=== PATIENT | male | born 1995 | race Caucasian/White ===

== ENCOUNTER 2017-04-13 20:48 | Emergency (ER) | payer SELFPAY ==
[~2017-04-13] VITALS: Ht 175.3 cm; Wt 68.0 kg
[2017-04-13] MEDS ORDERED: KETOROLAC 60 MG/2 ML VIAL IM STA (21:04)
[2017-04-13] MEDS ORDERED: RX-NAPROXEN (NAPROSYN) 250 MG TAB PPK#4 PO STA (21:04)
[2017-04-13] MEDS ORDERED: RX-TRAMADOL 50 MG (ULTRAM) TAB PPK#4 PO STA (21:04)
[2017-04-13] MEDS ORDERED: LIDO15SO2 MM (21:10)
[2017-04-13] MEDS ORDERED: TRAM-42 PO (21:10)
[2017-04-13] MEDS ORDERED: AMOX-358 PO (21:10)
[2017-04-13] MEDS ORDERED: NAPR500T4 PO (21:10)
--- NOTE | 2017-04-13 21:10 | ED EENT ---
History of Present Illness General Chief Complaint: Dental Problems/Pain Stated Complaint: TOOTH PAIN Nursing Triage Note: PT TO ED W/ C/O RT SIDE DENTAL PAIN ONSET TODAY. DENIES INJURY Source: patient History of Present Illness Time seen by provider: 21:00 Initial Comments PT C/O SEVERE PAIN AND SWELLING TO LEFT LOWER WISDOM TOOTH ALL DAY TODAY HAS NOT HAD PROBLEMS WITH THIS PARTICULAR TOOTH IN THE PAST, BUT HAS HAD PROBLEMS WITH HIS OTHER WISDOM TEETH NO FEVER NO SWELLING TO FACE NO RELIEF WITH [facility] STUDENT NO DENTIST Allergies and Home Medications Allergies Coded Allergies: No Known Drug Allergies (Unverified , 04/13/17) Home Medications Amoxicillin/Potassium Clav 1 Each Tablet, 1 EACH PO BID, #20 Prescribed by: NOAM PEREIRA on 04/13/172109 Lidocaine HCl 15 Ml Solution, 1-2 ML MM Q 1-2 HOURS, #50 Prescribed by: NOAM PEREIRA on 04/13/172109 Naproxen 500 Mg Tablet, 500 MG PO BID, #20 Prescribed by: NOAM PEREIRA on 04/13/172109 Tramadol HCl 50 Mg Tablet, 50 MG PO Q4H, #15 Prescribed by: NOAM PEREIRA on 04/13/172109 Review of Systems Constitutional: no symptoms reported Eyes: No Symptoms Reported Ears: No Symptoms Reported Nose: no symptoms reported Mouth: see HPI Throat: no symptoms reported Respiratory: no symptoms reported Cardiovascular: no symptoms reported Musculoskeletal: no symptoms reported Skin: no symptoms reported Neurological: No Symptoms Reported Past Uyzggie-Cyhiyu-Nvbvol Hx Patient Social History Alcohol Use: Denies Use Recreational Drug Use: No Smoking Status: Never a Smoker Recent Foreign Travel: No Contact w/Someone Who Travel: No Recent Infectious Disease Expo: No Recent Hopitalizations: No Surgeries HX Surgeries: No Respiratory Hx Respiratory Disorders: No Cardiovascular Hx Cardiac Disorders: No Neurological Hx Neurological Disorders: No Reproductive System Hx Reproductive Disorders: No Genitourinary Hx Genitourinary Disorders: No Gastrointestinal Hx Gastrointestinal Disorders: No Musculoskeletal Hx Musculoskeletal Disorders: No Endocrine Hx Endocrine Disorders: No HEENT HX ENT Disorders: No Cancer Hx Cancer: No Psychosocial Hx Psychiatric Problems: No Integumentary HX Skin/Integumentary Disorder: No Blood Transfusions Hx Blood Disorders: No Physical Exam Vital Signs Vital Sign - Last 12Hours 04/13/17 21:01 Temp 98.6 Pulse 85 Resp 20 B/P (MAP) 144/87 Pulse Ox 99 O2 Delivery Room Air General Appearance: WD/WN, other (ANXIOUS, HOLDING RIGHT JAW, CONSTANT MOVEMENTS/RESTLESS) Eyes: bilateral eye EOMI, bilateral eye PERRL, bilateral eye normal inspection Ears: bilateral ear TM normal, bilateral ear auricle normal, bilateral ear canal normal Nose: normal inspection Mouth/Throat: pharynx normal, dental tenderness, No excessive drooling, No mandibular swelling, No maxillary swelling, No trismus, other (RIGHT LOWER 3RD MOLAR IS PARTIALLY ERUPTED WITH MODERATE SWELLING AND ERYTHEMA TO ADJACENT GUM AND BUCCAL TISSUE. NO MANDIBULAR SWELLING OR REDNESS. ) Neck: non-tender, full range of motion, supple, normal inspection Cardiovascular: regular rate, rhythm, no murmur Respiratory: normal breath sounds Neurologic/Psychiatric: wet end helper II-XII nml as tested, no motor/sensory deficits, alert, oriented x 3 Skin: normal color, warm/dry Progress/Results/Core Measures Results/Orders My Orders Orders - NOAM PEREIRA DO Ketorolac Injection (Toradol Injection) (04/13/17 21:04) Ceftriaxone Injection (Rocephin Injectio (04/13/17 21:15) Lidocaine 1% Injection (Xylocaine 1% Inj (04/13/17 21:15) Lidocaine 2% Viscous 15 Ml (Xylocaine Vi (04/13/17 21:15) Amoxicillin/Clavulanate Tablet (Augmenti (04/13/17 21:15) Rx-Naproxen (Rx-Naprosyn) (04/13/17 21:04) Rx-Tramadol Hcl (Rx-Ultram) (04/13/17 21:04) Vital Signs/I&O Vital Sign - Last 12Hours 04/13/17 21:01 Temp 98.6 Pulse 85 Resp 20 B/P (MAP) 144/87 Pulse Ox 99 O2 Delivery Room Air Blood Pressure Mean: 106 Departure Impression Impression: Primary Impression: Impacted third molar tooth Additional Impression: Dental infection Disposition: 01 HOME, SELF-CARE Condition: Stable Departure-Patient Inst. Referrals: NO,LOCAL PHYSICIAN (PCP) Primary Care Physician [facility] Patient Instructions: Dental Pain (DC), Impacted Tooth (DC), Tooth Abscess (DC) Add. Discharge Instructions: SALT WATER SWISHES SOFT FOODS FOLLOW UP WITH DENTIST OF CHOICE IN 3-4 DAYS FOR FURTHER CARE All discharge instructions reviewed with patient and/or family. Voiced understanding. Scripts Tramadol HCl (Ultram) 50 Mg Tablet 50 MG PO Q4H, #15 TAB Prov: NOAM PEREIRA DO 04/13/17 Naproxen (Naproxen) 500 Mg Tablet 500 MG PO BID, #20 TAB Prov: NOAM PEREIRA DO 04/13/17 Lidocaine HCl (Lidocaine HCl Viscous) 15 Ml Solution 1-2 ML MM Q 1-2 HOURS for Pain, #50 EA Prov: NOAM PEREIRA DO 04/13/17 Amoxicillin/Potassium Clav (Augmentin 875-125 Tablet) 1 Each Tablet 1 EACH PO BID for INFECTION, #20 TAB Prov: NOAM PEREIRA DO 04/13/17 NOAM PEREIRA DO Apr 13, 2017 21:10
[2017-04-13] MEDS ORDERED: cefTRIAXone 1 GM (ROCEPHIN) VIAL IM ONE (21:15)
[2017-04-13] MEDS ORDERED: AUGMENTIN 875 MG TAB (AMOXICILLIN/CLAVULANATE) PO SCH (21:15)
[2017-04-13] MEDS ORDERED: LIDOCAINE 2% VISCOUS 15 ML UDC MM ONE (21:15)
[2017-04-13] MEDS ORDERED: LIDOCAINE 1% INJ 20 ML (XYLOCAINE) VIAL INJ ONE (21:15)
[2017-04-13 21:48] VITALS: BP 0/0
== END 2017-04-13 21:48 | disposition home or self-care (01) ==
LOC: ER 20:50
DX: K01.1 Impacted teeth (principal); K04.7 Periapical abscess without sinus
CPT/HCPCS: 96372; 99284